=== PATIENT | female | born 1975 | race Caucasian/White ===

== ENCOUNTER 2022-06-01 14:34 | Outpatient (CLI) | payer OTHER, BC, SELFPAY ==
--- NOTE | 2022-06-01 15:20 | CRLHL7_ITS ---
For Patients: As a result of the Century Cures Act, medical imaging exams and procedure reports are released immediately into your electronic medical record. You may view this report before your referring provider. If you have questions, please contact your health care provider. BILATERAL SCREENING MAMMOGRAM WITH COMPUTER-AIDED DETECTION AND TOMOSYNTHESIS TECHNIQUE: CC and MLO views were obtained. These mammographic images have been obtained using full-field digital technique. These mammographic images were interpreted with the benefit of computer-aided detection. Breast Tomosynthesis was used in this interpretation. COMPARISON FILM: 01/02/20, 12/24/19, 05/15/18 FINDINGS: The breasts are heterogeneously dense, which may obscure small masses IMPRESSION: There is no radiographic evidence for malignancy. ASSESSMENT: BI-RADS Category 2: Benign RECOMMENDATION: Routine screening mammogram in 1 year. A lay language report of this examination will be provided to the patient. Domingo Arauz M.D. Diagnostic Radiologist [email or web address] ROBERT/Dictated by: Domingo Arauz MD @ 06/08/2022 8:31:00 AM (Electronically Signed)
== END 2022-06-01 14:35 | disposition home or self-care (01) ==
LOC: MAMMO 14:36
PROVIDERS: PCP Nurse Practitioner Family; Visit Provider Nurse Practitioner Family
DX: Z12.31 Encounter for screening mammogram for malignant neoplasm of breast (principal); R92.2 Inconclusive mammogram
CPT/HCPCS: 77063; 77067

== ENCOUNTER 2023-10-02 14:40 | Outpatient (CLI) | payer OTHER, BC, SELFPAY ==
--- NOTE | 2023-10-02 15:00 | CRLHL7_ITS ---
For Patients: As a result of the Century Cures Act, medical imaging exams and procedure reports are released immediately into your electronic medical record. You may view this report before your referring provider. If you have questions, please contact your health care provider. INDICATION: COOLEY SYNDROME - ASSESS OVARIES COMPARISON: none TECHNIQUE: 2D bello scale and color Doppler images were acquired of the pelvis using a transabdominal and transvaginal approach. FINDINGS: Sonographic images demonstrate a normal size and smooth outer contour of the uterus. Uterus measures 10.2 cm in length by 3.9 cm in AP diameter by 4.5 cm in transverse dimension. The myometrium has a heterogeneous echotexture. The endometrial lining measures 10 mm in composite thickness. The right ovary measures 2.2 x 1.3 x 1.4 cm in size and the left ovary measures 5.5 x 3.7 x 3.5 cm. Simple left ovarian cyst is present with a smaller adjacent cyst. The larger cyst measures 3.5 x 3.3 x 3.5 cm. The ovaries demonstrate normal arterial and venous blood flow on color Doppler analysis. There are no suspicious fluid collections within the cul-de-sac. IMPRESSION: Simple left ovarian cyst measuring 3.5 x 3.3 x 3.5 cm. No suspicious findings. Dictated by Domingo Arauz MD @ 10/05/2023 12:22:57 PM (Electronically Signed)
== END 2023-10-02 14:41 | disposition home or self-care (01) ==
LOC: US 14:41
PROVIDERS: PCP Nurse Practitioner Family; Visit Provider Nurse Practitioner Family
DX: Z15.09 Genetic susceptibility to other malignant neoplasm (principal); N83.202 Unspecified ovarian cyst, left side
CPT/HCPCS: 76830; 76856; 93976

== ENCOUNTER 2024-02-29 10:00 | Outpatient (CLI) | payer OTHER, BC, SELFPAY ==
--- NOTE | 2024-02-29 10:15 | MM_ITS ---
Patient: CARLOS PLATT Facility:?[facility] Patient ID:?[id number] Site Patient ID:?[id number]. Site :?[id number] Study:?XRay-Breast Bilateral 3D W/CAD-02/29/2024 11:12:48 AM Ordering Physician:Chris Final Report: BILATERAL SCREENING MAMMOGRAM WITH COMPUTER-AIDED DETECTION AND TOMOSYNTHESIS TECHNIQUE: CC and MLO views were obtained. These mammographic images have been obtained using full-field digital technique. These mammographic images were interpreted with the benefit of computer-aided detection. Breast Tomosynthesis was used in this interpretation. COMPARISON FILM: 06/01/22, 12/24/19, 04/18/18. FINDINGS: The breasts are heterogeneously dense, which may obscure small masses IMPRESSION: There is no radiographic evidence for malignancy. ASSESSMENT: BI-RADS Category 2: Benign RECOMMENDATION: Routine screening mammogram in 1 year. A lay language report of this examination will be provided to the patient. Domingo Arauz M.D. Diagnostic Radiologist [email or web address] ELVA/sabina Transcribed: 1:47 p.mTri muhammad/Dictated by: Domingo Arauz MD @ 02/29/2024 12:36:00 PM Signed by:?Domingo Arauz MD @02/29/2024 1:50:37 PM (Electronic Signature)
== END 2024-02-29 10:01 | disposition home or self-care (01) ==
LOC: MAMMO 10:00
PROVIDERS: PCP Nurse Practitioner Family; Visit Provider Nurse Practitioner Family
DX: Z12.31 Encounter for screening mammogram for malignant neoplasm of breast (principal); R92.2 Inconclusive mammogram
CPT/HCPCS: 77063; 77067

== ENCOUNTER 2024-11-28 09:06 | Outpatient (CLI) | payer OTHER, BC, SELFPAY | END 2024-11-28 09:07 | disposition home or self-care (01) | PROVIDERS: PCP Nurse Practitioner Family; Visit Provider Nurse Practitioner Family | DX: Z13.0 Encounter for screening for diseases of the blood and blood-forming organs and certain disorders involving the immune mechanism (principal); Z13.228 Encounter for screening for other metabolic disorders; Z13.6 Encounter for screening for cardiovascular disorders | CPT/HCPCS: 80053; 80061; 85025 ==

== ENCOUNTER 2024-12-10 09:02 | Outpatient (CLI) | payer OTHER, BC, SELFPAY ==
--- NOTE | 2024-12-10 09:15 | CRLHL7_ITS ---
For Patients: As a result of the Century Cures Act, medical imaging exams and procedure reports are released immediately into your electronic medical record. You may view this report before your referring provider. If you have questions, please contact your health care provider. INDICATION: genetic susceptibility to malignant neoplasm COMPARISON: 10/02/2023 TECHNIQUE: 2D bello scale and color Doppler images were acquired of the pelvis using a transabdominal and transvaginal approach. FINDINGS: Sonographic images demonstrate a normal size and smooth outer contour of the uterus. Uterus measures 9.5 cm in length by 3.9 cm in AP diameter by 4.4 cm in transverse dimension. The myometrium has a normal uniform echotexture. The endometrial lining measures 9.4 mm in composite thickness. The right ovary measures 2.5 x 1.6 x 2.7 cm in size and the left ovary measures 5.0 x 3.3 x 5.7 cm. The ovaries demonstrate normal arterial and venous blood flow on color Doppler analysis. There are no suspicious fluid collections within the cul-de-sac. Simple left ovarian cyst measures 4.0 x 3.9 x 3.7 cm. Previously, this measured 3.5 x 3.3 x 3.5 cm. Right ovarian cyst is present measuring 2.1 x 1.7 x 2.4 cm. Mild internal debris noted. No internal vascularity. No solid component. IMPRESSION: 4.0 cm simple left ovarian cyst. Benign 2.4 cm right ovarian cyst with mild internal debris. No suspicious findings. Dictated by Domingo Arauz MD @ 12/10/2024 10:17:43 AM (Electronically Signed)
== END 2024-12-10 09:03 | disposition home or self-care (01) ==
LOC: US 09:02
PROVIDERS: PCP Nurse Practitioner Family; Visit Provider Nurse Practitioner Family
DX: N83.201 Unspecified ovarian cyst, right side (principal); N83.202 Unspecified ovarian cyst, left side; Z15.09 Genetic susceptibility to other malignant neoplasm
CPT/HCPCS: 76830; 76856

== ENCOUNTER 2025-07-23 07:27 | Outpatient (CLI) | payer OTHER, BC, SELFPAY ==
--- NOTE | 2025-07-23 07:45 | CRLHL7_ITS ---
For Patients: As a result of the Century Cures Act, medical imaging exams and procedure reports are released immediately into your electronic medical record. You may view this report before your referring provider. If you have questions, please contact your health care provider. BILATERAL DIGITAL SCREENING MAMMOGRAM WITH COMPUTER-AIDED DETECTION AND TOMOSYNTHESIS CLINICAL HISTORY: : Routine screening exam. COMPARISON: Mammograms 02/29/2024 and 06/01/2022. TECHNIQUE: Digital mammogram in CC and MLO projections including computer-aided detection (CAD) and tomosynthesis. BREAST COMPOSITION: There are scattered areas of fibroglandular density. FINDINGS: RIGHT Breast: No suspicious findings. LEFT Breast: There is a 1.3 cm at 9 o`clock 6 cm from the nipple. IMPRESSION: LEFT breast mass. RECOMMENDATIONS: Left breast ultrasound. A member of the health care team will contact the patient to schedule the required additional imaging appointment(s). BI-RADS Category 0: Incomplete: Need Additional Imaging Evaluation Dictated by Celia Gama MD @ 07/24/2025 8:45:32 PM (Electronically Signed)
== END 2025-07-23 07:28 | disposition home or self-care (01) ==
LOC: MAMMO 07:27
PROVIDERS: PCP Nurse Practitioner Family; Visit Provider Nurse Practitioner Family
DX: Z12.31 Encounter for screening mammogram for malignant neoplasm of breast (principal); N63.20 Unspecified lump in the left breast, unspecified quadrant
CPT/HCPCS: 77063; 77067

== ENCOUNTER 2025-07-28 08:57 | Outpatient (CLI) | payer OTHER, BC, SELFPAY ==
--- NOTE | 2025-07-28 09:15 | CRLHL7_ITS ---
For Patients: As a result of the Cures Act, medical imaging exams and procedure reports are released immediately into your electronic medical record. You may view this report before your referring provider. If you have questions, please contact your health care provider. LEFT BREAST ULTRASOUND CLINICAL HISTORY: LEFT breast mass/asymmetry. COMPARISON: 07/23/2025. TECHNIQUE: Real-time ultrasound imaging of LEFT breast with imaging documentation. Scanning was performed by both the technologist and the radiologist. FINDINGS: Targeted sonogram lateral LEFT breast demonstrates a circumscribed anechoic simple cyst measuring 1.3 x 0.8 x 0.9 cm corresponding with the mammographic finding. Other smaller cysts are present elsewhere. IMPRESSION: Benign fibrocystic changes including a 1.3 cm simple cyst lateral LEFT breast posterior depth. No suspicious findings. No evidence of malignancy. RECOMMENDATIONS: Routine screening mammography. Results and recommendations were discussed with the patient at the time of the exam. A lay language report of this examination will be provided to the patient. BI-RADS Category 2: Benign Dictated by Domingo Arauz MD @ 07/28/2025 9:39:56 AM jj/Dictated by: Domingo Arauz MD @ 07/28/2025 9:39:00 AM (Electronically Signed)
== END 2025-07-28 08:58 | disposition home or self-care (01) ==
LOC: US 08:57
PROVIDERS: PCP Nurse Practitioner Family; Visit Provider Nurse Practitioner Family
DX: N63.20 Unspecified lump in the left breast, unspecified quadrant (principal); R92.8 Other abnormal and inconclusive findings on diagnostic imaging of breast
CPT/HCPCS: 76642

== ENCOUNTER 2025-09-22 10:56 | Outpatient (CLI) | payer OTHER, BC, SELFPAY ==
[2025-09-24 15:03] LABS: HPV Source Vaginal
[2025-09-30 08:55] LABS: Pap Test Digital Imaging Done
== END 2025-09-22 10:57 | disposition home or self-care (01) ==
PROVIDERS: PCP Nurse Practitioner Family; Visit Provider Nurse Practitioner Family
DX: Z00.00 Encounter for general adult medical examination without abnormal findings (principal); Z13.0 Encounter for screening for diseases of the blood and blood-forming organs and certain disorders involving the immune mechanism
CPT/HCPCS: 80053; 80061; 85025; 87624; 87625; 88141; 88142; 88175